=== PATIENT | female | born 1965 | race Caucasian/White ===

== ENCOUNTER 2017-04-13 21:10 | Emergency (ER) | payer BC ==
[2017-04-13] MEDS ORDERED: Lidocaine 1% 10 MG/ML - 20 ML VIAL SUBCUT ONE (21:20)
[2017-04-13 21:31] VITALS: RESP 16; TEMP 97.4
--- NOTE | 2017-04-14 01:28 | PDOC ---
Hand / Wrist Injury HPI - General Chief Complaint: Laceration / Wound Stated Complaint: LEFT 4TH DIGIT LACERATION FROM DOG TOOTH Date Seen by Provider: 04/13/17 Time Seen by Provider: 21:15 Source: POSITIVE: Patient Exam Limitations: POSITIVE: No limitations Nurse's Notes Reviewed & Considered: Yes - History of Present Illness Initial Comments: The patient is a 52-year-old female. The patient was playing with her puppy and the patient accidentally caught her left fourth finger on the dog's tooth and the patient sustained a laceration over the palmar aspect of the left fourth finger. Laceration is approximately 2.5 cm in length. No sensory or motor symptoms. Patient's tetanus vaccination is current and the dog has received all of its vaccinations. Have you received a tetanus shot in the past 10 years?: No Body Location Affected: REPORTS: Upper Extremity (L) Timing: REPORTS: Abrupt Duration: 1/2 hour Severity: Moderate Location at Time of Onset: REPORTS: Home Context: REPORTS: Laceration Location of Injury: REPORTS: Left, 4th Finger Quality: REPORTS: "Pain" (Mild pain locally at site of laceration) Modifying Factors: REPORTS: Other (Discomfort exacerbated by direct palpation) Associated Symptoms: DENIES: Arm (R), Arm (L), Tingling Distally, Numbness Distally, Loss of Feeling, Loss of Power, Other Any Prior Injuries Related to Current Complaint?: No - Patient Home Medications Home Medications: Home Medications Ascorbic Acid [Vitamin C] 1,000 mg PO DAILY 09/26/15 Iron 45 mg PO DAILY 09/26/15 Lansoprazole [Prevacid] 30 mg PO BEDTIME #90 capsule. 09/26/15 Hydroxyzine HCl 25 mg PO q hs #30 tab 07/09/16 Clobetasol Propionate 60 gm TP BID #1 tube 09/14/16 - Patient Allergies Allergies/Adverse Reactions: Allergies Allergy/AdvReac Type Severity Reaction Status Date / Time hydrocodone Allergy Severe SHORTNESS Unverified 01/21/17 17:10 OF BREATH shellfish derived Allergy VOMITING Unverified 01/21/17 17:10 Past Medical History - heen HEENT History: Denies History Cardiovascular History: Denies History Respiratory History: Denies History Gastrointestinal History: GERD, Irritable Bowel Syndrome, Gallbladder Disease Genitourinary History: Denies History Endocrine History: Denies History Musculoskeletal History: Denies History Prosthesis or Implant: No Neurological History: Denies History Blood Disorders: Anemia Additional Blood Disorders History: ANEMIA WITH Psychiatric History: Denies History History of Sexually Transmitted Diseases: No Female Reproductive History: Denies History Obstetrical History: Denies History Cancer History: Denies History In Past Year Been Physically Harmed or Verbally Threatened: No History of MDRO: No History of Other Communicable Diseases: No Tobacco Use: Never Smoker Alcohol Use: Occasionally Substance Use Type: None Previous Surgical History: Yes Type / Date of Surgery: C-SECT/THYROID CYSTS DRAINED 2014/TUBAL LIGATION 1988/ UNILATERAL OOPHORECTOMY 1988 Anesthesia Reactions: No Malignant Hyperthermia: No Significant Family History: Cancer, Diabetes, Vascular disease Past Medical History Reviewed: Reviewed - No Changes ROS - Limitations ROS Limitations: No Limitations Constitution: REPORTS: Denies Symptoms Cardiovascular: REPORTS: Denies Cardiac Symptoms Respiratory: REPORTS: Denies Resp Symptoms Neurological: REPORTS: Denies Neuro Symptoms Gastrointestinal: REPORTS: Denies GI Symptoms Endocrine: REPORTS: Denies Symptoms Musculoskeletal: REPORTS: Recent Injury (Laceration as above; see diagram.) Genitourinary: REPORTS: Denies Symptoms Eyes: REPORTS: Denies Symptoms ENT: REPORTS: Denies Symptoms Skin: REPORTS: Other (Laceration as above; see diagram) Lympathic: REPORTS: Denies Lympathic Symptoms Immunologic: POSITIVE: Denies Symptoms Psychiatric: POSITIVE: Denies Psych Symptoms Hand / Wrist Injury Exam - General Appearance General Appearance: POSITIVE: Alert, Cooperative, No Acute Distress. NEGATIVE: No Evidence of Trauma (laceration left fourth finger as above; see diagram) - Extremities Upper Extremity: POSITIVE: No Evidence of FB, Normal ROM, Soft Tissue Tenderness , Uninjured Above Wrist, See Diagram (laceration as above). NEGATIVE: Bony Tenderness, Swelling, Ecchymosis, Deformity, Complete Nail Injury, Partial Avulsion, Limited ROM, Limited ROM d/t Pain, Ltd. ROM d/t Funct. Def., Snuff Box Position Tender, Axial Thumb Load Pain Neurovascular / Tendon: POSITIVE: Sensation Normal, Motor Normal, No Vascular Compromise, Tendon Function Normal Skin: POSITIVE: See Diagram (laceration left fourth finger) - Respiratory / CVS Respiratory / CVS: POSITIVE: Chest Non Tender, No Ecchymosis, Breath Sounds Normal, No Respiratory Distress, Heart Sounds Normal, Regular Rate/Rhythm Peripheral Pulses: Radial (L): 2+, Femoral (R): 2+ Images - Hands Hand: 1 - Laceration Procedure - Laceration/Wound Repair Site of Lac/Wound:: Left fourth finger Time of Suture Placement:: 21:20 Wound Length (cm): 2.5 Wound's Depth, Shape: Into subcutaneous tissue Distal CMS: Yes Skin Prep: Sterile Field Maintained, Sterile Drapes Applied, Sterile Dressing Applied, Other (Irrigated with normal saline) Local Anesthesia Used - Indicate Amt Used in Comment: Lidocaine 1%: Yes Irrigated w/ Saline (mL): 20 Wound Explored: No foreign body removed Wound Debrided: Minimal Wound Repaired With: Sutures single layer Suture Size/Type: 5:0, Ethilon Number of Sutures: 4 Layer Closure?: No Drain Placement: No Sterile Dressing Applied?: Yes Splint Applied?: No Hand / Wrist Injury Progress - Patient's Progress Pain Medication Addressed: POSITIVE: Yes (recommended Advil or Tylenol) School/Work Release Addressed: POSITIVE: Not Applicable Re-Examine Time: 21:40 Re-Examine Comment: Primary closure complete Status: POSITIVE: Improved, Re-Examined - Consult Counseled: POSITIVE: Patient, RE: DX, RE: Need for F/U Patient Care Time - Estimated PCT Patient Care Time (In Minutes): 35 Vital Signs - Recent Vital Signs Vital Signs: Vital Signs (Last 8 hours) Temp Pulse Resp BP Pulse Ox 04/13/17 21:15 97.4 F 87 16 98/51 95 - VS Reviewed Vital Signs Reviewed: Yes Discharge Clinical Impression: Laceration - injury Discharge Disposition: Discharged to Home Condition: Stable Patient Instructions Given at Discharge: Laceration (ED) Additional Instructions: Keep sutures clean. Return in 10 days for suture removal. Return anytime at first sign of infection, or if condition worsens in anyway whatsoever. Follow Up With: ILSA GUIDO [Primary Care Provider] - (Instructions as above. Follow-up with your primary care provider. Return here anytime if condition worsens in any way.)
== END 2017-04-13 21:50 | disposition home or self-care (01) ==
LOC: ER 21:10
DX: S61.215A Laceration without foreign body of left ring finger without damage to nail, initial encounter (principal); W54.1XXA Struck by dog, initial encounter
CPT/HCPCS: 12001; 99282